=== PATIENT | male | born 2000 | race Caucasian/White ===

== ENCOUNTER 2020-05-10 12:23 | Emergency (ER) | payer OTHER ==
[2020-05-10 13:06] VITALS: BP 125/55; PULSE 75; RESP 20; TEMP 98
--- NOTE | 2020-05-10 14:02 | ED ---
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 Pt reportedly shared tools. Pt denies symptoms including dyspnea, fever, diarrhea and vomiting. - Related Data Home Medications Medication Instructions Recorded Confirmed No Known Home Medications 05/10/20 05/10/20 Allergies Allergy/AdvReac Type Severity Reaction Status Date / Time No Known Allergies Allergy Verified 05/10/20 13:06 Review of Systems ROS Statement: Those systems with pertinent positive or pertinent negative responses have been documented in the HPI. ROS Other: All systems not noted in ROS Statement are negative. Past Medical History Past Medical History: No Reported History History of Any Multi-Drug Resistant Organisms: None Reported Past Surgical History: No Surgical Hx Reported Past Psychological History: No Psychological Hx Reported Smoking Status: Never smoker Past Alcohol Use History: None Reported Past Drug Use History: None Reported General Exam - General Exam Comments Initial Comments: Well appearing 19 year old male. No distress. Limitations: no limitations General appearance: alert, in no apparent distress Head exam: Present: atraumatic, normocephalic, normal inspection Eye exam: Present: normal appearance, PERRL, EOMI. Absent: scleral icterus, conjunctival injection, periorbital swelling ENT exam: Present: normal exam, mucous membranes moist Neck exam: Present: normal inspection. Absent: tenderness, meningismus, lymphadenopathy Respiratory exam: Present: normal lung sounds bilaterally. Absent: respiratory distress, wheezes, rales, rhonchi, stridor Cardiovascular Exam: Present: regular rate, normal rhythm, normal heart sounds. Absent: systolic murmur, diastolic murmur, rubs, gallop, clicks GI/Abdominal exam: Present: soft, normal bowel sounds. Absent: distended, tenderness, guarding, rebound, rigid Extremities exam: Present: normal inspection, full ROM, normal capillary refill. Absent: tenderness, pedal edema, joint swelling, calf tenderness Back exam: Present: normal inspection Neurological exam: Present: alert, oriented X3, CN II-XII intact Psychiatric exam: Present: normal affect, normal mood Skin exam: Present: warm, dry, intact, normal color. Absent: rash Course Vital Signs 05/10/20 13:04 Temperature 98.0 F Pulse Rate 75 Respiratory 20 Rate Blood Pressure 125/55 O2 Sat by Pulse 99 Oximetry Medical Decision Making - Medical Decision Making 19 year old male with CC o Covid exposure with no symptoms. Covid testing is negative. Discussed patient should monitor for symptoms and be retested if he has any. Discussed return parameters. - Lab Data Lab Results 05/10/20 Range/Units 13:04 Coronavirus (PCR) Not Detected (Not Detectd) Disposition Clinical Impression: Exposure to COVID-19 virus Disposition: HOME SELF-CARE Condition: Good Instructions (If sedation given, give patient instructions): Viral Syndrome (ED) Additional Instructions: If Patient were to develop any symptoms including fever chills nausea vomiting, sinus congestion or difficult breathing Patient may need to be retested for Covid. At this time your Covid test is negative. If he were to develop symptoms Patient should be retested and been self quarantined for 2 weeks. Is patient prescribed a controlled substance at d/c from ED?: No Referrals: None,Stated [Primary Care Provider] - 1-2 days
== END 2020-05-10 14:05 | disposition home or self-care (01) ==
LOC: EC 12:23
DX: Z03.818 Encounter for observation for suspected exposure to other biological agents ruled out (principal)
CPT/HCPCS: 87635; 99284